=== PATIENT | male | born 1985 | race Caucasian/White ===

== ENCOUNTER 2022-05-29 09:03 | Emergency (ER) | payer OTHER ==
[2022-05-29] MEDS ORDERED: Pantoprazole 40 MG VIAL ONE (09:39)
[2022-05-29] MEDS ORDERED: Lidocaine Viscous Sol 2% 15 ml UD Cup ONE (09:39)
[2022-05-29] MEDS ORDERED: Mag-Al Plus 1200 MG/1200 MG/120 MG/30 ML UDCUP ONE ×2 (09:39→12:38)
[2022-05-29] MEDS ORDERED: Ondansetron PF 4 MG/2 ML Vial ONE (10:14)
[2022-05-29] MEDS ORDERED: Sucralfate 1 GM TAB ONE (10:15)
[2022-05-29 10:25] LABS: ALT (SGPT) 36 U/L (8-55); AST (SGOT) 29 U/L (5-34); Albumin 4.5 g/dL (3.5-5.0); Alkaline Phosphatase 65 U/L (40-110); Anion Gap 19 mmol/L (10-20); BUN (Urea Nitrogen) 13 mg/dL (8.9-20.6); Bilirubin, Total 0.5 mg/dL (0.2-1.2); Calc. Creatinine Clearance 0 mL/min (70-130); Calcium 9.3 mg/dL (7.8-10.44); Carbon Dioxide 22 mmol/L (22-29); Chloride 102 mmol/L (98-107); Estimated GFR 106; Globulin 3.4 g/dL (2.4-3.5); Glucose 139 mg/dL (70-105); Lipase 16 U/L (8-78); Protein, Total 7.9 g/dL (6.0-8.3); Sodium 139 mmol/L (136-145)
[2022-05-29 10:35] LABS: Band 1 % (5-11); Hemoglobin 13.6 g/dL (14.0-18.0); Lymphocytes 5 % (21-51); MDiff Complete? YES; Mean Corpuscular HGB CONC 30.8 g/dL (32.0-36.0); Mean Corpuscular Hemoglobin 28.9 pg (27.0-31.0); Mean Corpuscular Volume 93.9 fL (78.0-98.0); Mean Platelet Volume 13.7 fL (7.4-10.4); Monocytes 3 % (0-10); Neutrophil 91 % (42-75); Platelet Count 210 thou/uL (130-400); Platelet Morphology Comment Appears Adequate; RBC Distribution Width 12.4 % (11.5-14.5); Red Blood Cell (RBC) Count 4.72 mill/uL (4.70-6.10); White Blood Cell (WBC) Count 9.6 thou/uL (4.8-10.8)
[2022-05-29 10:55] LABS: Bilirubin Negative (Negative); Blood, Urine Trace (Negative); Clarity Clear (Clear); Glucose, Urine (Dipstick) Negative (Negative); Ketone, Urine 40 mg/dL (Negative); Leukocyte Negative (Negative); Nitrite Negative (Negative); Protein, Urine (Dipstick) Negative (Neg-Trace); Specific Gravity, Urine 1.025 (1.005-1.030); Urobilinogen 0.2 mg/dL (Less than 2)
[2022-05-29 11:04] LABS: RBC/HPF 0-3 HPF (0-3)
[2022-05-29 11:05] LABS: Amphetamine Not Detected (NotDetected); Barbiturates Screen Not Detected (NotDetected); Benzodiazepine Screen Not Detected (NotDetected); Cocaine Metabolite Screen Not Detected (NotDetected); Medtox Control Line Valid? VALID (VALID); Methadone Not Detected (NotDetected); Methamphetamine Not Detected (NotDetected); Opiate Screen Not Detected (NotDetected); Oxycodone Screen Not Detected (NotDetected); Phencyclidine (PCP) Not Detected (NotDetected); THC/Cannabinoid Screen Not Detected (NotDetected); Tricyclic Screen Not Detected (NotDetected)
[2022-05-29 12:55] LABS: Troponin I Less than 0.010 ng/mL (< 0.028)
== END 2022-05-29 13:24 ==
LOC: NAV ERS 09:03
DX: K29.70 Gastritis, unspecified, without bleeding (principal); I10 Essential (primary) hypertension; K21.9 Gastro-esophageal reflux disease without esophagitis; Z87.891 Personal history of nicotine dependence; Z79.899 Other long term (current) drug therapy
CPT/HCPCS: 71045; 80053; 80306; 81003; 81015; 83690; 84484; 85025; 93005; 96374; 96375; C9113; J2405